=== PATIENT | male | born 1965 | race Caucasian/White ===

== ENCOUNTER 2018-05-20 09:31 | Day surgery (SDC) | payer OTHER ==
[~2018-05-20] VITALS: Ht 180.3 cm; Wt 90.0 kg
[~2018-05-20 09:31] MED LIST: LOSA50TA3 PO; PRAV20TA4 PO
[2018-05-20 09:45] VITALS: BP 157/101
[2018-05-20] MEDS ORDERED: fish oil PO (09:45)
[2018-05-20] MEDS ORDERED: Co Q-10 PO (09:46)
[2018-05-20] MEDS ORDERED: MIDAZolam 5mg/5ml vial ONE (09:47)
[2018-05-20] MEDS ORDERED: fentaNYL/PF 50MCG/1 ML 2ML syringe ONE (09:47)
[2018-05-20] MEDS ORDERED: PRAV10TA39 PO (09:48)
[2018-05-20] MEDS ORDERED: ATOR10TA70 PO (09:48)
[2018-05-20 10:14] VITALS: BP 148/88
[2018-05-20 10:24] VITALS: BP 121/79
[2018-05-20 10:34] VITALS: BP 122/79
== END 2018-05-20 10:48 | disposition home or self-care (01) ==
LOC: GI LAB 09:31
PROVIDERS: ATTEND Internal Medicine Gastroenterology
DX: Z12.11 Encounter for screening for malignant neoplasm of colon (principal); I10 Essential (primary) hypertension; Z72.89 Other problems related to lifestyle; Z87.39 Personal history of other diseases of the musculoskeletal system and connective tissue; Z86.010 Personal history of colon polyps; Z79.899 Other long term (current) drug therapy; Z98.890 Other specified postprocedural states
CPT/HCPCS: 45378; 99152; J2250; J3010; J7030; A4620; G0500

== ENCOUNTER 2018-08-03 11:05 | Outpatient (CLI) | payer OTHER ==
[~2018-08-03 11:05] MED LIST changes: +ATOR10TA70 PO; +Co Q-10 PO; -LOSA50TA3 PO; +PRAV10TA39 PO; -PRAV20TA4 PO; +fish oil PO
== END 2018-08-03 23:59 | disposition home or self-care (01) ==
LOC: RAD 11:05
PROVIDERS: ATTEND Chiropractor
DX: M54.5 Low back pain (principal); I10 Essential (primary) hypertension; Z87.891 Personal history of nicotine dependence
CPT/HCPCS: 72110

== ENCOUNTER 2020-04-17 14:58 | Emergency (ER) | payer BC ==
[~2020-04-17] VITALS: Ht 177.8 cm; Wt 95.0 kg
[2020-04-17 15:18] LABS: BASOPHILS % (AUTO) 0.8 % (0-1); EOSINOPHILS # (AUTO) 0.3 X10'3 (0-0.9); HEMOGLOBIN 16.2 g/dl (14.0-17.9); MEAN CORPUSCULAR HGB CONC 34.9 g/dL (33.0-36.5)
[2020-04-17 15:19] LABS: EOSINOPHILS % (AUTO) 5.6 % (0-6); HEMATOCRIT 46.4 % (42.0-52.0); LYMPHOCYTES # (AUTO) 2.4 X10'3 (1.1-4.8); LYMPHOCYTES % (AUTO) 38.4 % (21-51); MEAN CORPUSCULAR HEMOGLOBIN 32.4 PG (27.0-31.0); MEAN CORPUSCULAR VOLUME 92.9 FL (78-98); MONOCYTES # (AUTO) 0.4 X10'3 (0-0.9); MONOCYTES % (AUTO) 7.1 % (2-12); NEUTROPHILS % (AUTO) 48.1 % (42-75); PLATELET COUNT 209 X10'3 (140-440); RED CELL DISTRIBUTION WIDTH 13.1 % (11.5-14.5); WHITE BLOOD COUNT 6.1 X10'3 (4.5-11.0)
[2020-04-17 15:26] LABS: ALANINE AMINOTRANSFERASE 47 U/L (12-78); ALBUMIN 4.6 G/DL (3.4-5.0); ALBUMIN/GLOBULIN RATIO 1.4 (1.1-1.5); ALKALINE PHOSPHATASE 56 IU/L (46-116); ANION GAP 9 (8-16); ASPARTATE AMINO TRANSFERASE 37 U/L (10-37); BILIRUBIN,TOTAL 0.7 MG/DL (0.1-1.0); BLOOD UREA NITROGEN 16 MG/DL (7-18); BUN/CREATININE RATIO 12.9 (5.4-32.0); CALCIUM 9.6 MG/DL (8.5-10.1); CHLORIDE 106 MMOL/L (99-107); CREATININE 1.24 MG/DL (0.60-1.10); GLUCOSE 96 MG/DL (70-104); POTASSIUM 3.8 MMOL/L (3.5-5.1); SODIUM 142 MMOL/L (135-145); TOTAL CARBON DIOXIDE 26.9 MMOL/L (24-32); TOTAL PROTEIN 7.9 G/DL (6.4-8.2); eGFR 60 ML/MIN
[2020-04-17 16:09] VITALS: BP 154/103
== END 2020-04-17 16:06 | disposition home or self-care (01) ==
LOC: ER 14:59
DX: R07.89 Other chest pain (principal); I10 Essential (primary) hypertension; E78.5 Hyperlipidemia, unspecified; Z79.899 Other long term (current) drug therapy
CPT/HCPCS: 36415; 71045; 80053; 83880; 84484; 85025; 93005; 99285

== ENCOUNTER 2021-03-06 09:02 | Outpatient (CLI) | payer BC ==
[2021-03-06] MEDS ORDERED: GADOTERATE MEGLUMINE 7.5 MMOL/15 ML VIAL IV ONE (16:29)
== END 2021-03-06 23:59 | disposition home or self-care (01) ==
LOC: RAD 09:02
PROVIDERS: ATTEND Otolaryngology
DX: D33.3 Benign neoplasm of cranial nerves (principal); H90.5 Unspecified sensorineural hearing loss; R42 Dizziness and giddiness
CPT/HCPCS: 70553; A9575

== ENCOUNTER 2022-05-13 15:31 | Outpatient (CLI) | payer BC ==
[2022-05-13] MEDS ORDERED: GADOTERATE MEGLUMINE 7.5 MMOL/15 ML VIAL IV ONE (16:57)
== END 2022-05-13 23:59 | disposition home or self-care (01) ==
LOC: RAD 15:31
PROVIDERS: ATTEND Otolaryngology
DX: D33.3 Benign neoplasm of cranial nerves (principal); R42 Dizziness and giddiness
CPT/HCPCS: 70543; 70553; A9575

== ENCOUNTER 2022-08-04 14:03 | Outpatient (CLI) | payer BC | END 2022-08-04 23:59 | disposition home or self-care (01) | LOC: VAS 14:03 | PROVIDERS: ATTEND Physician Assistant | DX: I65.23 Occlusion and stenosis of bilateral carotid arteries (principal); R55 Syncope and collapse | CPT/HCPCS: 93880 ==

== ENCOUNTER 2022-08-28 08:44 | Outpatient (CLI) | payer BC | END 2022-08-28 23:59 | disposition home or self-care (01) | LOC: CARD DIAG 08:44 | PROVIDERS: ATTEND Internal Medicine Cardiovascular Disease | DX: I08.8 Other rheumatic multiple valve diseases (principal); R06.02 Shortness of breath | CPT/HCPCS: 93306 ==

== ENCOUNTER 2022-11-18 19:14 | Emergency (ER) | payer BC ==
[~2022-11-18] VITALS: Ht 177.8 cm; Wt 100.0 kg
[2022-11-18 19:25] VITALS: BP 151/88
[2022-11-18] MEDS ORDERED: cyclobenzaprine 10mg tablet PO ONE (21:20)
[2022-11-18] MEDS ORDERED: ketorolac trometh. 30mg/ml inj. IM ONE (21:20)
[2022-11-18] MEDS ORDERED: METH4TAB3 PO (21:21)
[2022-11-18] MEDS ORDERED: CYCL-1 PO (21:21)
[2022-11-18] MEDS ORDERED: TRAM50TA2 PO (21:21)
== END 2022-11-18 21:45 | disposition home or self-care (01) ==
LOC: ER 19:16
DX: S86.811A Strain of other muscle(s) and tendon(s) at lower leg level, right leg, initial encounter (principal); Z79.899 Other long term (current) drug therapy; X50.1XXA Overexertion from prolonged static or awkward postures, initial encounter; Y93.89 Activity, other specified; Y92.89 Other specified places as the place of occurrence of the external cause; Y99.8 Other external cause status
CPT/HCPCS: 73590; 96372; 99283; J1885

== ENCOUNTER 2022-12-16 09:24 | Outpatient (CLI) | payer BC ==
[2022-12-16] VITALS (21 sets, daily range): BP systolic 136–165; BP diastolic 78–97
[~2022-12-16 09:24] MED LIST changes: +CYCL-1 PO; +METH4TAB3 PO
== END 2022-12-16 23:59 | disposition home or self-care (01) ==
LOC: CARD DIAG 09:24
PROVIDERS: ATTEND Internal Medicine Cardiovascular Disease
DX: R55 Syncope and collapse (principal)
CPT/HCPCS: 93660

== ENCOUNTER 2023-02-14 09:38 | Emergency (ER) | payer BC ==
[~2023-02-14] VITALS: Ht 177.8 cm; Wt 90.5 kg
[2023-02-14] MEDS ORDERED: IRBE1TAB33 PO (10:23)
[2023-02-14 10:26] LABS: BASOPHILS % (AUTO) 0.7 % (0-1); EOSINOPHILS # (AUTO) 0.2 X10'3 (0-0.9); EOSINOPHILS % (AUTO) 2.8 % (0-6); HEMATOCRIT 50.2 % (42.0-52.0); HEMOGLOBIN 17.5 g/dl (14.0-17.9); LYMPHOCYTES # (AUTO) 1.5 X10'3 (1.1-4.8); LYMPHOCYTES % (AUTO) 23.5 % (21-51); MEAN CORPUSCULAR HEMOGLOBIN 32.2 PG (27.0-31.0); MEAN CORPUSCULAR VOLUME 92.1 FL (78-98); MEAN PLATELET VOLUME 7.7 FL (7.4-10.4); MONOCYTES # (AUTO) 0.4 X10'3 (0-0.9); NEUTROPHILS # (AUTO) 4.2 X10'3 (1.8-7.7); PLATELET COUNT 246 X10'3 (140-440); RED BLOOD COUNT 5.45 X10'6 (4.70-6.10); RED CELL DISTRIBUTION WIDTH 13.7 % (11.5-14.5); WHITE BLOOD COUNT 6.3 X10'3 (4.5-11.0)
[2023-02-14 10:37] LABS: ALANINE AMINOTRANSFERASE 43 U/L (12-78); ALBUMIN 4.7 G/DL (3.4-5.0); ALBUMIN/GLOBULIN RATIO 1.5 (1.1-1.5); ALKALINE PHOSPHATASE 67 IU/L (46-116); ANION GAP 15 (8-16); ASPARTATE AMINO TRANSFERASE 34 U/L (10-37); BILIRUBIN,TOTAL 0.8 MG/DL (0.1-1.0); BLOOD UREA NITROGEN 17 MG/DL (7-18); CALCIUM 9.5 MG/DL (8.5-10.1); CHLORIDE 99 MMOL/L (99-107); CREATININE 1.13 MG/DL (0.60-1.10); GLUCOSE 137 MG/DL (70-104); POTASSIUM 3.6 MMOL/L (3.5-5.1); SODIUM 138 MMOL/L (135-145); TOTAL CARBON DIOXIDE 24.1 MMOL/L (24-32); TOTAL PROTEIN 7.9 G/DL (6.4-8.2); eGFR 66 ML/MIN
[2023-02-14 11:23] VITALS: BP 145/84
[2023-02-14] MEDS ORDERED: potassium Cl 20 mEq SR tablet PO STA (11:46)
== END 2023-02-14 12:14 | disposition home or self-care (01) ==
LOC: ER 09:39
DX: R00.2 Palpitations (principal)
CPT/HCPCS: 36415; 71045; 80053; 83880; 84484; 85025; 93005; 99285

== ENCOUNTER 2024-04-12 08:22 | Outpatient (CLI) | payer BC ==
[~2024-04-12 08:22] MED LIST changes: +IRBE1TAB33 PO
[2024-04-12 09:18] LABS: BASOPHILS % (AUTO) 0.7 % (0-1); EOSINOPHILS # (AUTO) 0.2 X10'3 (0-0.9); EOSINOPHILS % (AUTO) 4.4 % (0-6); HEMATOCRIT 49.5 % (42.0-52.0); LYMPHOCYTES # (AUTO) 1.5 X10'3 (1.1-4.8); LYMPHOCYTES % (AUTO) 28.3 % (21-51); MEAN CORPUSCULAR HEMOGLOBIN 32.5 PG (27.0-31.0); MEAN CORPUSCULAR HGB CONC 34.3 g/dL (33.0-36.5); MEAN CORPUSCULAR VOLUME 94.8 FL (78-98); MONOCYTES # (AUTO) 0.5 X10'3 (0-0.9); MONOCYTES % (AUTO) 8.7 % (2-12); NEUTROPHILS # (AUTO) 3.1 X10'3 (1.8-7.7); NEUTROPHILS % (AUTO) 57.9 % (42-75); PLATELET COUNT 209 X10'3 (140-440); RED BLOOD COUNT 5.22 X10'6 (4.70-6.10); RED CELL DISTRIBUTION WIDTH 13.8 % (11.5-14.5); WHITE BLOOD COUNT 5.4 X10'3 (4.5-11.0)
[2024-04-12 09:21] LABS: BILIRUBIN,URINE NEGATIVE (Neg); CLARITY,URINE CLEAR (Clear); COLOR,URINE YELLOW (Yellow); GLUCOSE, URINE NEGATIVE (Neg); KETONES,URINE NEGATIVE (Neg); LEUKOCYTE ESTERASE ,URINE NEGATIVE (Neg); NITRITES, URINE NEGATIVE (Neg); OCCULT BLOOD,URINE NEGATIVE (Neg); PROTEIN,URINE NEGATIVE (Neg); UROBILINOGEN,URINE 0.2 E.U/dL (0.2-1.0)
[2024-04-12 09:23] LABS: UA COLLECTION TYPE VOIDED
[2024-04-12 10:12] LABS: ALANINE AMINOTRANSFERASE 57 U/L (12-78); ALBUMIN 4.2 G/DL (3.4-5.0); ALBUMIN/GLOBULIN RATIO 1.4 (1.1-1.5); ALKALINE PHOSPHATASE 58 IU/L (46-116); ANION GAP 3 (8-16); ASPARTATE AMINO TRANSFERASE 39 U/L (10-37); BILIRUBIN,TOTAL 0.6 MG/DL (0.1-1.0); CALCIUM 8.8 MG/DL (8.5-10.1); CHLORIDE 103 MMOL/L (99-107); CHOL/HDL RATIO 3.6 (0.00-4.99); CHOLESTEROL 169 MG/DL (0-200); CREATININE 1.19 MG/DL (0.60-1.10); GLUCOSE 115 MG/DL (70-104); HDL CHOLESTEROL 47 MG/DL (35-60); LDL CHOLESTEROL 102 MG/DL (50-100); POTASSIUM 4.2 MMOL/L (3.5-5.1); SODIUM 136 MMOL/L (135-145); THYROID STIMULATING HORMONE 1.45 ulU/ml (0.34-4.50); TOTAL CARBON DIOXIDE 29.6 MMOL/L (24-32); TOTAL PROTEIN 7.3 G/DL (6.4-8.2); TRIGLYCERIDES 65 MG/DL (20-135); eGFR 62 ML/MIN
[2024-04-12 10:38] LABS: BLOOD UREA NITROGEN 18 MG/DL (7-18); BUN/CREATININE RATIO 15.1 (10.0-20.0)
== END 2024-04-12 23:59 | disposition home or self-care (01) ==
LOC: LAB 08:22
PROVIDERS: ATTEND Family Medicine
DX: E78.5 Hyperlipidemia, unspecified (principal); I10 Essential (primary) hypertension
CPT/HCPCS: 36415; 80053; 80061; 81003; 84436; 84443; 85025

== ENCOUNTER 2024-05-17 09:06 | Outpatient (CLI) | payer BC ==
[2024-05-18 13:17] LABS: TESTOSTERONE, SERUM 240 ng/dL (264-916)
== END 2024-05-17 23:59 | disposition home or self-care (01) ==
LOC: RAD 09:06
PROVIDERS: ATTEND Family Medicine
DX: E78.5 Hyperlipidemia, unspecified (principal); I10 Essential (primary) hypertension; I48.91 Unspecified atrial fibrillation; E29.9 Testicular dysfunction, unspecified
CPT/HCPCS: 36415; 84402; 84403

== ENCOUNTER 2024-05-24 12:47 | Outpatient (CLI) | payer BC ==
[2024-05-24 13:46] LABS: BASOPHILS % (AUTO) 0.5 % (0-1); EOSINOPHILS # (AUTO) 0.2 X10'3 (0-0.9); EOSINOPHILS % (AUTO) 2.7 % (0-6); HEMATOCRIT 50.6 % (42.0-52.0); HEMOGLOBIN 17.1 g/dl (14.0-17.9); LYMPHOCYTES # (AUTO) 1.6 X10'3 (1.1-4.8); LYMPHOCYTES % (AUTO) 25.4 % (21-51); MEAN CORPUSCULAR HEMOGLOBIN 32.2 PG (27.0-31.0); MEAN CORPUSCULAR HGB CONC 33.7 g/dL (33.0-36.5); MEAN CORPUSCULAR VOLUME 95.5 FL (78-98); MEAN PLATELET VOLUME 8.3 FL (7.4-10.4); MONOCYTES # (AUTO) 0.5 X10'3 (0-0.9); MONOCYTES % (AUTO) 7.6 % (2-12); NEUTROPHILS # (AUTO) 3.9 X10'3 (1.8-7.7); NEUTROPHILS % (AUTO) 63.8 % (42-75); PLATELET COUNT 211 X10'3 (140-440); RED CELL DISTRIBUTION WIDTH 13.8 % (11.5-14.5); WHITE BLOOD COUNT 6.2 X10'3 (4.5-11.0)
== END 2024-05-24 23:59 | disposition home or self-care (01) ==
LOC: LAB 12:47
PROVIDERS: ATTEND Student in an Organized Health Care Education/Training Program
DX: E29.1 Testicular hypofunction (principal); I48.0 Paroxysmal atrial fibrillation; I10 Essential (primary) hypertension
CPT/HCPCS: 36415; 82670; 83001; 83002; 84402; 84403; 85025

== ENCOUNTER 2024-12-02 08:52 | Outpatient (CLI) | payer BC ==
[2024-12-02 09:26] LABS: BILIRUBIN,URINE NEGATIVE (Neg); CLARITY,URINE CLEAR (Clear); COLOR,URINE YELLOW (Yellow); GLUCOSE, URINE NEGATIVE (Neg); KETONES,URINE NEGATIVE (Neg); LEUKOCYTE ESTERASE ,URINE NEGATIVE (Neg); NITRITES, URINE NEGATIVE (Neg); OCCULT BLOOD,URINE NEGATIVE (Neg); PROTEIN,URINE NEGATIVE (Neg); UROBILINOGEN,URINE 0.2 E.U/dL (0.2-1.0)
[2024-12-02 09:28] LABS: BASOPHILS % (AUTO) 0.5 % (0-1); EOSINOPHILS # (AUTO) 0.1 X10'3 (0-0.9); EOSINOPHILS % (AUTO) 0.8 % (0-6); HEMATOCRIT 49.1 % (42.0-52.0); LYMPHOCYTES # (AUTO) 1.3 X10'3 (1.1-4.8); LYMPHOCYTES % (AUTO) 14.9 % (21-51); MEAN CORPUSCULAR HEMOGLOBIN 32.1 PG (27.0-31.0); MEAN CORPUSCULAR HGB CONC 34.5 g/dL (33.0-36.5); MONOCYTES # (AUTO) 0.4 X10'3 (0-0.9); MONOCYTES % (AUTO) 5.1 % (2-12); NEUTROPHILS # (AUTO) 6.9 X10'3 (1.8-7.7); NEUTROPHILS % (AUTO) 78.7 % (42-75); PLATELET COUNT 219 X10'3 (140-440); RED BLOOD COUNT 5.28 X10'6 (4.70-6.10); RED CELL DISTRIBUTION WIDTH 13.9 % (11.5-14.5); UA COLLECTION TYPE NON-SPECIFIED; WHITE BLOOD COUNT 8.7 X10'3 (4.5-11.0)
[2024-12-02 09:48] LABS: ALANINE AMINOTRANSFERASE 72 U/L (12-78); ALBUMIN 4.6 G/DL (3.4-5.0); ALBUMIN/GLOBULIN RATIO 1.7 (1.1-1.5); ALKALINE PHOSPHATASE 63 IU/L (46-116); ANION GAP 7 (8-16); ASPARTATE AMINO TRANSFERASE 47 U/L (10-37); BILIRUBIN,TOTAL 0.7 MG/DL (0.1-1.0); BLOOD UREA NITROGEN 19 MG/DL (7-18); BUN/CREATININE RATIO 13.9 (10.0-20.0); CALCIUM 9.4 MG/DL (8.5-10.1); CHLORIDE 106 MMOL/L (99-107); CHOL/HDL RATIO 3.5 (0.00-4.99); CHOLESTEROL 162 MG/DL (0-200); CREATININE 1.37 MG/DL (0.60-1.10); GLUCOSE 105 MG/DL (70-104); HDL CHOLESTEROL 46 MG/DL (35-60); LDL CHOLESTEROL 94 MG/DL (50-100); SODIUM 140 MMOL/L (135-145); THYROID STIMULATING HORMONE 2.01 ulU/ml (0.34-4.50); TOTAL CARBON DIOXIDE 27.4 MMOL/L (24-32); TOTAL PROTEIN 7.3 G/DL (6.4-8.2); TRIGLYCERIDES 108 MG/DL (20-135); eGFR 53 ML/MIN
[2024-12-03 13:25] LABS: TESTOSTERONE, SERUM 140 ng/dL (264-916)
== END 2024-12-02 23:59 | disposition home or self-care (01) ==
LOC: RAD 08:52
PROVIDERS: ATTEND Nurse Practitioner Family
DX: I48.91 Unspecified atrial fibrillation (principal); E78.5 Hyperlipidemia, unspecified; E29.9 Testicular dysfunction, unspecified; I10 Essential (primary) hypertension; I48.0 Paroxysmal atrial fibrillation
CPT/HCPCS: 36415; 80053; 80061; 81003; 84402; 84403; 84439; 84443; 85025

== ENCOUNTER 2025-02-26 12:02 | Emergency (ER) | payer BC ==
[~2025-02-26] VITALS: Ht 175.3 cm; Wt 73.9 kg
[2025-02-26 12:04] VITALS: BP 166/70; PULSE 83; RESP 15; TEMP 98.3; O2SAT 99
[2025-02-26] MEDS ORDERED: KEN0.1O TOP (12:13)
[2025-02-26] MEDS ORDERED: METH4TAB81 PO (12:13)
--- NOTE | 2025-02-26 12:13 | Physician Documentation ---
History of Present Illness ~ Chief Complaint: Bite-insect Stated Complaint: BEE STING LT FOOT Time Seen by MD: 12:11 Primary Medical Doctor: Dr. Tyler BROWN This 59 yr old male presents due to swelling, redness, itching left foot after bee sting to left second toe last night. He denies N/V, difficulty swallowing, difficulty breathing, chest tightness. Does endorse itching. Tetanus within 5 years?: No Medication Reconciliation Allergies: Coded Allergies: No Known Allergies (Unverified , 02/14/23) Scheduled Atorvastatin Calcium (Atorvastatin Calcium), 1 TAB PO DAILY, (Reported) Cyclobenzaprine* (Cyclobenzaprine*), 1 TAB PO Q8H Irbesartan/Hydrochlorothiazide (Irbesartan-Hctz 300-12.5 Mg Tb), 1 TAB PO DAILY Methylprednisolone (Medrol), 1 DOSPAK PO UD Methylprednisolone (Medrol Dosepak), 0 PO UD Pravastatin Sodium (Pravastatin Sodium), 1 TAB PO DAILY, (Reported) Triamcinolone Acetonide 0.1% Crm* (Kenalog 0.1% Crm*), 1 APPLIC TOP Q12H [Co Q-10], PO DAILY, (Reported) [fish oil], PO DAILY, (Reported) Past Medical History Past Medical History: No Pertinent History Past Surgical History: noncontributory Alcohol Use: None Drug Use: none Physical Exam Vital Signs: Temperature: 98.3, Source: Temporal, Heart Rate: 83, Respiratory Rate: 15, BP: 166/70, Pulse Oximetry: 99, Weight: 73.900 Physical Exam General: Alert, no apparent distress. HEENT: PERRL, EOMI, no injection, moist mucous membranes. Neck: Full range of motion. Respiratory: Lungs clear, no respiratory distress. Chest: No accessory muscle use. Cardiovascular: Regular rate and rhythm, no murmurs. Gastrointestinal: Soft, nontender, nondistended. Bowels sounds present. Extremities: Normal range of motion, no deformity. Neurologic: Oriented x4. Psychiatric: Normal mood and affect. Skin: Normal color, warm and dry. 2+ erythema left second toe. Progress Results/Orders Results/Orders Vital Signs 02/26/25 12:04 Temp 98.3 Pulse 83 Resp 15 B/P (MAP) 166/70 Pulse Ox 99 Medical Decision Making Differential Dx:Considerations: Include: Abrasion, Allergic reaction, Anaphylaxis, Cellulitis, Contusion, Fracture, Hematoma, Insect envenomation, Laceration, Neurovascular injury, Punture wound, Retained foreign body, Urticaria Additional Comment Patient without systemic signs of reaction. Erythema to left second toe. Appropriate for discharge and outpatient treatment. Instructed to ice and elevate, return if worse. Departure Time of Disposition: 12:11 Disposition: 01 HOME / SELF CARE / HOMELESS Impression: Primary Impression: Bee sting Discharge Instructions: Insect Bite, Adult, [id number] Additional Instructions: You have what is called a "large local site reaction." Ice, elevate. Take the medrol dose pack as prescribed. Take Claritin or Zyrtec daily for the next few days. Apply the topical cream twice daily. RETURN IF WORSE. Referrals: NO PRIMARY CARE PROVIDER (PCP) Prescriptions Methylprednisolone (Medrol Dosepak) 4 Mg Tab.ds.pk 0 PO UD, #21 TAB 0 Refills take 6 Pills Day 1, 5 Pills Day 2, 4 Pills Day 3, 3 Pills Day 4, 2 Pills Day 5 and 1 pill Day 6 Prov: SALVATORE CALVIN NP 02/26/25 Triamcinolone Acetonide 0.1% Crm* (Kenalog 0.1% Crm*) 1 Applic Tube 1 APPLIC TOP Q12H for 10 Days, #80 GM Prov: SALVATORE CALVIN NP 02/26/25 Education Educated: Patient Educated regarding: diagnosis, treatment, prognosis, need for follow up Signature Scribe Signature: no scribe Attestation: The note accurately reflects work and decisions made by me.Salvatore Suarez NP 02/26/25 12:15 SALVATORE CALVIN NP Feb 26, 2025 12:13
== END 2025-02-26 12:23 | disposition home or self-care (01) ==
LOC: ER 12:03
DX: T63.441A Toxic effect of venom of bees, accidental (unintentional), initial encounter (principal); Z79.899 Other long term (current) drug therapy; Y92.89 Other specified places as the place of occurrence of the external cause
CPT/HCPCS: 99283

== ENCOUNTER 2025-03-06 12:38 | Outpatient (CLI) | payer BC ==
[~2025-03-06 12:38] MED LIST changes: +KEN0.1O TOP; +METH4TAB81 PO
== END 2025-03-06 23:59 | disposition home or self-care (01) ==
LOC: LAB 12:38
PROVIDERS: ATTEND Specialist
DX: E29.1 Testicular hypofunction (principal)
CPT/HCPCS: 36415; 83002; 84146; 84402; 84403

== ENCOUNTER 2025-03-24 12:25 | Outpatient (CLI) | payer BC ==
[~2025-03-24 12:25] MED LIST changes: -KEN0.1O TOP
[2025-03-24 12:53] LABS: LEUKOCYTE ESTERASE ,URINE NEGATIVE (Neg); NITRITES, URINE NEGATIVE (Neg); OCCULT BLOOD,URINE NEGATIVE (Neg)
[2025-03-24 12:54] LABS: MEAN PLATELET VOLUME 7.8 FL (7.4-10.4); RED CELL DISTRIBUTION WIDTH 14.1 % (11.5-14.5)
[2025-03-24 13:04] LABS: UA COLLECTION TYPE NON-SPECIFIED
[2025-03-24 13:14] LABS: CHOL/HDL RATIO 3.6 (0.00-4.99); CREATININE 1.10 MG/DL (0.60-1.10); LDL CHOLESTEROL 118 MG/DL (50-100); TOTAL CARBON DIOXIDE 28.9 MMOL/L (24-32); eGFR 68 ML/MIN
== END 2025-03-24 23:59 | disposition home or self-care (01) ==
LOC: LAB 12:25
PROVIDERS: ATTEND Nurse Practitioner Family
DX: I10 Essential (primary) hypertension (principal); E78.5 Hyperlipidemia, unspecified; E29.9 Testicular dysfunction, unspecified; R35.1 Nocturia; I48.0 Paroxysmal atrial fibrillation; Z00.00 Encounter for general adult medical examination without abnormal findings; M17.12 Unilateral primary osteoarthritis, left knee; M17.11 Unilateral primary osteoarthritis, right knee; M25.561 Pain in right knee; M25.562 Pain in left knee
CPT/HCPCS: 36415; 80053; 80061; 81003; 82607; 82746; 84153; 84402; 84403; 84439; 84443; 85025

== ENCOUNTER 2025-05-23 14:37 | Outpatient (CLI) | payer BC ==
[~2025-05-23 14:37] MED LIST changes: +PRAV10TA12 PO; -PRAV10TA39 PO
--- NOTE | 2025-05-23 15:39 | RADIOLOGY REPORT ---
INDICATION: LUMBAR BACK PAIN COMPARISON: None TECHNIQUE: 5 views of the lumbar spine were obtained. FINDINGS: The lumbar vertebral alignment is normal. Mild multilevel degenerative disease of the lumbosacral spine. No acute fracture, vertebral compression deformity or aggressive osseous lesions. The paravertebral soft tissues are grossly unremarkable. IMPRESSION: No acute fracture. Mild multilevel degenerative disease of the lumbosacral spine.
== END 2025-05-23 23:59 | disposition home or self-care (01) ==
LOC: RAD 14:37
PROVIDERS: ATTEND Nurse Practitioner Family
DX: M51.379 Other intervertebral disc degeneration, lumbosacral region without mention of lumbar back pain or lower extremity pain (principal); M54.50 Low back pain, unspecified
CPT/HCPCS: 72110

== ENCOUNTER 2025-08-03 14:33 | Outpatient (CLI) | payer BC ==
[2025-08-03 15:13] LABS: CHOL/HDL RATIO 3.0 (0.00-4.99); CREATININE 1.31 MG/DL (0.60-1.10); LDL CHOLESTEROL 109 MG/DL (50-100); TOTAL CARBON DIOXIDE 29.3 MMOL/L (24-32); eGFR 56 ML/MIN
== END 2025-08-03 23:59 | disposition home or self-care (01) ==
LOC: LAB 14:33
PROVIDERS: ATTEND Nurse Practitioner Family
DX: E78.5 Hyperlipidemia, unspecified (principal)
CPT/HCPCS: 36415; 80053; 80061